=== PATIENT | female | born 1990 | race Two or more races ===

== ENCOUNTER 2019-12-12 13:00 | Emergency (ER) | payer OTHER ==
[~2019-12-12] VITALS: Ht 162.6 cm; Wt 86.2 kg
[2019-12-12 13:11] VITALS: BP 156/90
== END 2019-12-12 16:30 | disposition left against medical advice (07) ==
LOC: ER 13:00
DX: R10.9 Unspecified abdominal pain (principal); R11.2 Nausea with vomiting, unspecified; Z53.21 Procedure and treatment not carried out due to patient leaving prior to being seen by health care provider

== ENCOUNTER 2020-12-29 07:04 | Emergency (ER) | payer MEDICAID, OTHER ==
[~2020-12-29] VITALS: Ht 162.6 cm; Wt 66.7 kg
[2020-12-29 09:18] VITALS: BP 125/89
[2020-12-29 09:46] LABS: Urine Bacteria NONE SEEN /hpf (None Seen); Urine Blood 3+ /uL (Negative); Urine Specific Gravity 1.002 (1.001-1.035); Urine WBC <1 /hpf (0 - 5)
== END 2020-12-29 10:17 | disposition home or self-care (01) ==
LOC: ER 07:04
DX: T83.39XA Other mechanical complication of intrauterine contraceptive device, initial encounter (principal); R10.31 Right lower quadrant pain
CPT/HCPCS: 74176; 76856; 81001

== ENCOUNTER → 2021-02-14 | Emergency (ER) | payer MEDICAID ==
[~2021-02-14] VITALS: Ht 162.6 cm; Wt 68.0 kg
[2021-02-14 21:35] VITALS: BP 108/66
== END | disposition home or self-care (01) ==
LOC: ER 20:55
DX: Z48.01 Encounter for change or removal of surgical wound dressing (principal); M79.642 Pain in left hand